=== PATIENT | female | born 1935 | race Two or more races ===

== ENCOUNTER → 2024-02-11 | Outpatient (CLI) | payer MEDICARE, MEDICAID, SELFPAY ==
[2024-02-11 08:34] LABS: Basophils % (Auto) 1 % (0-2.5); Eosinophils % (Auto) 1 % (0-10); Hematocrit 36.6 % (36.0-46.0); Hemoglobin 12.8 g/dL (12.0-16.0); Immature Granulocytes % (Auto) 0 % (0-0); Immature Granulocytes Auto 0.02 Thou/mm3 (0.00-0.00); Lymphocytes # (Auto) 1.8 Thou/mm3 (1.0-4.8); Lymphocytes % (Auto) 27 % (10-50); Mean Corpuscular Hemoglobin 40.4 pg (25.0-35.0); Mean Corpuscular Volume 116 fL (80-100); Monocytes # (Auto) 0.6 Thou/mm3 (0.0-0.8); Monocytes % (Auto) 9 % (0-12); Neutrophils # (Auto) 4.2 Thou/mm3 (1.8-7.7); Neutrophils % (Auto) 63 % (37-80); Nucleated Red Blood Cell % 0 /100 WBC (0); Platelet Count 197 Thou/mm3 (140-440); RDW Standard Deviation 56.9 fL (36.4-46.3); Red Blood Count 3.17 Miln/mm3 (4.00-5.20); White Blood Count 6.6 Thou/mm3 (3.6-11.0)
[2024-02-11 09:02] LABS: Folate 19.08 ng/mL (>5.38); Vitamin B12 750 pg/mL (211-911)
[2024-02-11 09:06] LABS: Alanine Aminotransferase 17 U/L (10-49); Albumin, Serum 4.8 gm/dL (3.4-4.8); Alkaline Phosphatase 65 U/L (46-116); Anion Gap 8 (7-16); Aspartate Amino Transferase 13 U/L (0-34); BUN/Creatinine Ratio 16 Ratio (12-20); Bilirubin,Total 0.9 mg/dL (0.3-1.2); Blood Urea Nitrogen 18 mg/dL (9-23); Carbon Dioxide 22.9 mMol/L (20.0-31.0); Chloride 107 mMol/L (98-107); Creatinine (Component) 1.1 mg/dL (0.6-1.3); Globulin 2.4 gm/dL (2.3-3.5); Glucose 121 mg/dL (74-106); Osmolality,Calculated 278 (275-295); Potassium 4.4 mMol/L (3.4-5.1); Sodium 138 mMol/L (136-145); Total Protein 7.2 gm/dL (5.7-8.2); eGFR 48 See Note
[2024-02-11 09:18] LABS: Ferritin 8 ng/mL (7.3-270.7); Iron 76 mcg/dL (50-170); Percent Iron Saturation 21 % (20-55); Total Iron Binding Capacity 360 mcg/dL (250-425); Unsaturated Iron Binding 284 (225-295)
== END | disposition home or self-care (01) ==
PROVIDERS: PCP Internal Medicine; Referring Provider Nurse Practitioner Family; Visit Provider Nurse Practitioner Family
DX: D75.839 Thrombocytosis, unspecified (principal)
CPT/HCPCS: 36415; 80053; 82607; 82728; 82746; 83540; 83550; 85025

== ENCOUNTER 2024-02-17 13:02 | Outpatient (RCR) | payer MEDICARE, MEDICAID, SELFPAY ==
--- NOTE | 2024-02-20 23:30 | CTCFLWUP_ITS ---
[address] [address] FOLLOW UP NOTE DATE OF VISIT: 10/07/2023 NAME: CHRISTIE WRIGHT MR#: [id number] : 1935 AGE: 88 DIAGNOSIS: Essential thrombocythemia, mononclonal B cell lymphocytosis JAK2 positive 02/25/23 History of iron deficiency anemia Chronic kidney disease Hypertension Taking hydroxyurea 500 mg daily and aspirin 81 mg, (03/24/2023). REASON FOR TODAY?S VISIT: I am seeing the patient for follow-up visit at [facility]. Patient is accompanied by daughter. We are seeing the patient for essential thrombocythemia , JAK2 positive. Labs drawn on 10/04/2023 show platelets 231,000, hemoglobin 13.8. Patient has been ta deirdre hydroxyurea 500 mg daily since 03/24/2023, tolerating medication well. Previously on 01/14/2023 platelets were 829,000, hemoglobin 10.3. Patient denies any concerns or complaints. Patient reports feeling well. Denies recent illness, denies chest pain, shortness of breath, cough fever weight loss abdominal pain, bleeding concerns, denies epistaxsis, blood in the stool fatou blood or black stools fatou blood from her rectum, denies swelling and/or pain to any extremity, headache dizziness vision changes. HISTORY OF PRESENT ILLNESS: PREVIOUS NOTE: Ms. Christie Wright is a 88-year-old Citizen Of [place]-speaking His panic female who is being evaluated at [facility] for thrombocytosis, patient is acco mpanied by daughter. Patient was referred to us for thrombocytosis, platelets were 829,000 on 2022, hemoglobin 10.3, MCV 77, ANC 7.8, WBC 11.1. Patient also has a history of chronic renal insuff iciency, CKD, following up with Dr. Rao, next f/u is on 06/2023, also has a history of hypertensio n, hyperlipidemia, A-fib with RVR, on Eliquis, CHF, follows up with Dr. Mckinney cardiology, who is alley bucio, last follow-up was on 01/22/2023. Patient also has a history of stroke 04/2022. Pat usha reports feeling well denies any concerns at this time. Patient ambulates with assistance of a chela gonzalez. 01/14/2023: Platelets 829,000, hemoglobin 10.3, MCV 77, ANC 7.8, WBC 11.1 01/20/2023: Transvaginal ultrasound 02/24/2023: Platelets 864,000, hemoglobin 14.4, MCV 83, ANC 10.2, WBC 14.2, CrC 40.0, vitamin B12 812 , folate 23.85 02/25/2023: Platelets 841,000, hemoglobin 14.4, MCV 83, ANC 9.8, WBC 13.9 03/24/2023: Hydroxyurea 500 mg daily and aspirin 81 mg started 05/31/2023: Platelets 419,000, hemoglobin 15.0, MCV 98, ANC 6.1 WBC 8.7, iron saturation 42%, ferriti n 101, B12 512, folate 23.95 08/02/2023: Platelets 253,000, hemoglobin 13.2, MCV 112, ANC 5.6, WBC 8.1, iron saturation 49% 10/04/2023: Platelets 231,000, hemoglobin 13.8, MCV 116, ANC 5.0, WBC 7.2 MEDICATIONS: atorvastatin Eliquis [APIXABAN] buspirone famotidine ketotifen fumarate ferrous sulfate furosemide aspirin hydrALAZINE losartan Diltiazem CD [diltiazem hcl] alendronate Calcium + Vitamin D [calcium carbonate/ergocalciferol (vitamin d2)] diclofenac sodium montelukast hydroxyurea Ventolin HFA [albuterol sulfate] nystatin-emollient combo no.88 Pataday [olopatadine hcl] Medications last reconciled by SL on 10/07/2023 ALLERGIES: ??Denies REVIEW OF SYSTEMS Neurological: No headache, seizures or blurring of vision. Gastrointestinal: No nausea, vomiting, diarrhea or constipation. Cardiovascular: No palpitations or angina pains. Respiratory: No cough, chest pain or shortness of breath. VITAL SIGNS: Date Time PHYSICAL EXAMINATION: Conjunctivae is pink. Oral cavity: No Lesions. Chest is clear to auscultation. No wheezes or rales audible. CVS: Rhythm regular, no murmurs. Abdomen is soft. No hepatosplenomegaly. Extremities: No pedal edema, no cyanosis. LABORATORY DATA: Date 02/11/2024 Time 8:05 AM CBC ? ??WHITE BLOOD COUNT (Thou/mm3) 6.6 ??RED BLOOD COUNT (Miln/mm3) 3.17 L ??HEMOGLOBIN (gm/dl) 12.8 ??HEMATOCRIT (%) 36.6 ??MCV (MEAN CORPUSCULAR VOL) (fl) 116 H ??MCH (MEAN CORPUSCULAR HGB) (pg) 40.4 H ??MCHC (MEAN CORPSCULR HGB CONC) (gm/dl) 35.0 ??RDW (RBC DISTRIBUTION WDTH) SD (fl) 56.9 H ??PLATELET COUNT (Thou/mm3) 197 ??NEUTROPHILS %, AUTO (%) 63 ??LYMPH %, AUTO (%) 27 ??MONO %, AUTO (%) 9 ??EOS %, AUTO (%) 1 ??BASO %, AUTO (%) 1 ??NUCLEATED RBC % (/100 WBC) 0 ??NEUTROPHILS, AUTO (Thou/mm3) 4.2 ??LYMPH, AUTO (Thou/mm3) 1.8 ??MONO, AUTO (Thou/mm3) 0.6 ??EOS, AUTO (Thou/mm3) 0.0 ??BASO, AUTO (Thou/mm3) 0.0 ??NUCLEATED RBC # (Thou/mm3) 0.00 ??IMMATURE GRANULOCYTES % AUTO (%) 0 ??IMMATURE GRANULOCYTES, AUTO (Thou/mm3) 0.02 H Chemistry ? ??GLUCOSE,RANDOM (mg/dL) 121 H ??BLOOD UREA NITROGEN (mg/dL) 18 ??CREATININE (mg/dL) 1.10 ??SODIUM (mmol/L) 138 ??POTASSIUM (mmol/L) 4.4 ??CHLORIDE (mmol/L) 107 ??CO2 (CARBON DIOXIDE) (mmol/L) 22.9 ??ANION GAP (mmol/L) 8 ??OSMOLALITY, CALC 278 ??BUN/CREATININE RATIO (Ratio) 16 ??CrCl (CandG) (ml/min) 35.19 ??AST/SGOT (Unit/L) 13 ??ALT/SGPT (Unit/L) 17 ??ALKALINE PHOSPHATASE (Unit/L) 65 ??BILIRUBIN, TOTAL (mg/dL) 0.9 ??PROTEIN TOTAL (gm/dl) 7.2 ??ALBUMIN, SERUM (gm/dl) 4.8 ??GLOBULIN (gm/dl) 2.4 ??ALBUMIN/GLOBULIN RATIO 2.0 ??CALCIUM, SERUM (mg/dL) 10.0 ??CALCIUM SERUM (CORRECTED) (mg/dL) 10.0 Additional Labs ? ??TOTAL IRON BINDING CAP (S*) (mcg/dL) 360 ??UNBOUND IBC (mcg/dL) 284 ? ??Initials LZO ??Approved By LZO Other Labs ? ??CrCl (J) (ml/min) 35.7 ??FERRITIN (ng/ml) 8 ??Iron (mcg/dL) 76 ??Percent Iron Saturation (%) 21 ??Vitamin B12 (pg/ml) 750 ??Folate (ng/ml) 19.08 ??eGFR (See Note) 48 L ASSESSMENT: 1. Essential thrombocythemia, mononclonal B cell lymphocytosis JAK2 positive 02/25/23. 2. BCR/ABL transcript l, MPN panel negative on 02/24/2023. 3. Platelet count 231,000 on 10/04/2023, previously platelet count 829,000 on 01/14/2023 4. History of iron deficiency anemia, [id number], iron saturation 35% on 10/04/2023. 5. Chronic kidney disease, following up with Dr. Rao, creatinine 0.9 on 10/04/2023. 6. Hypertension CAD CHF A-fib with RVR, on Eliquis, following up with Dr. Mckinney, asymptomatic. 7. Stroke April 2022. 8. Taking hydroxyurea 500 mg and aspirin 81 mg since 03/24/2023, tolerating them well. 9. Follows up with Dr Sparks, [facility], patient reports she had an endometrial biopsy done recently due to endometrial thickening per transvaginal ultrasound done on 01/20/2023, was told biopsy was negativ e for malignancy, denies any complaints or concerns. PLAN: 1. Patient asymptomatic, no concerns or complaints. 2. Continue with hydroxyurea 500 mg daily and aspirin 81 mg daily, goal is to bring platelets to 400 ,000 or below. 3. Repeat labs prior to next follow-up appointment, labs ordered include CBC CMP iron saturation alisa ritin B12 folate 4. I will see the patient for follow-up in 2 months. 5. Request pathology results from endometrial biopsy. Dictated by: SUNDAY Donovan Electronically Signed by: {Object.Sanct_ID2*PnP.NameFL}, {Object.Sanct_ID2*PnP.Suffix} on {Object.Duncan ct_Date2@d01b} at {Object.Sanct_Time2@t3b} cc: JAVI RAO, Referring: GETACHEW RAO This document was completed utilizing speech recognition software. Grammatical errors, random word in sertions, pronoun errors, and incomplete sentences are an occasional consequence of this system due t o software limitations, ambient noise, and hardware issues. Any formal questions or concerns about th e content, text or information contained within the body of this dictation should be directly address ed to the provider for clarification. Patient: CHRISTIE WRIGHT : 1935 MR#: [id number] FOLLOW UP NOTE Page 6 of 6
--- NOTE | 2024-02-20 23:35 | CTCFLWUP_ITS ---
[address] [address] FOLLOW UP NOTE DATE OF VISIT: 02/17/2024 NAME: CHRISTIE WRIGHT MR#: [id number] : 1935 AGE: 88 DIAGNOSIS: Essential thrombocythemia, mononclonal B cell lymphocytosis JAK2 positive 02/25/23 History of iron deficiency anemia Chronic kidney disease Hypertension Taking hydroxyurea 500 mg daily and aspirin 81 mg, (03/24/2023). REASON FOR TODAY?S VISIT: I am seeing the patient for follow-up visit at [facility]. Patient is accompanied by daughter. We are seeing the patient for essential thrombocythemia , JAK2 positive. Labs drawn on 10/04/2023 show platelets 231,000, hemoglobin 13.8. Patient has been ta deirdre hydroxyurea 500 mg daily since 03/24/2023, tolerating medication well. Previously on 01/14/2023 platelets were 829,000, hemoglobin 10.3. Patient denies any concerns or complaints. Patient reports feeling well. Denies recent illness, denies chest pain, shortness of breath, cough fever weight loss abdominal pain, bleeding concerns, denies epistaxsis, blood in the stool fatou blood or black stools fatou blood from her rectum, denies swelling and/or pain to any extremity, headache dizziness vision changes. HISTORY OF PRESENT ILLNESS: PREVIOUS NOTE: Ms. Christie Wright is a 88-year-old [place]-speaking His panic female who is being evaluated at [facility] for thrombocytosis, patient is acco mpanied by daughter. Patient was referred to us for thrombocytosis, platelets were 829,000 on 2022, hemoglobin 10.3, MCV 77, ANC 7.8, WBC 11.1. Patient also has a history of chronic renal insuff iciency, CKD, following up with Dr. Rao, next f/u is on 06/2023, also has a history of hypertensio n, hyperlipidemia, A-fib with RVR, on Eliquis, CHF, follows up with Dr. Mckinney cardiology, who is alley bucio, last follow-up was on 01/22/2023. Patient also has a history of stroke 04/2022. Pat usha reports feeling well denies any concerns at this time. Patient ambulates with assistance of a chela gonzalez. 01/14/2023: Platelets 829,000, hemoglobin 10.3, MCV 77, ANC 7.8, WBC 11.1 01/20/2023: Transvaginal ultrasound 02/24/2023: Platelets 864,000, hemoglobin 14.4, MCV 83, ANC 10.2, WBC 14.2, CrC 40.0, vitamin B12 812 , folate 23.85 02/25/2023: Platelets 841,000, hemoglobin 14.4, MCV 83, ANC 9.8, WBC 13.9 03/24/2023: Hydroxyurea 500 mg daily and aspirin 81 mg started 05/31/2023: Platelets 419,000, hemoglobin 15.0, MCV 98, ANC 6.1 WBC 8.7, iron saturation 42%, ferriti n 101, B12 512, folate 23.95 08/02/2023: Platelets 253,000, hemoglobin 13.2, MCV 112, ANC 5.6, WBC 8.1, iron saturation 49% 10/04/2023: Platelets 231,000, hemoglobin 13.8, MCV 116, ANC 5.0, WBC 7.2 MEDICATIONS: atorvastatin Eliquis [APIXABAN] buspirone famotidine ketotifen fumarate ferrous sulfate furosemide aspirin hydrALAZINE losartan Diltiazem CD [diltiazem hcl] alendronate Calcium + Vitamin D [calcium carbonate/ergocalciferol (vitamin d2)] diclofenac sodium montelukast hydroxyurea Ventolin HFA [albuterol sulfate] nystatin-emollient combo no.88 Pataday [olopatadine hcl] Medications last reconciled by SL on 10/07/2023 ALLERGIES: ??Denies REVIEW OF SYSTEMS Neurological: No headache, seizures or blurring of vision. Gastrointestinal: No nausea, vomiting, diarrhea or constipation. Cardiovascular: No palpitations or angina pains. Respiratory: No cough, chest pain or shortness of breath. VITAL SIGNS: Date Vitals reviewed and are stableTime PHYSICAL EXAMINATION: Alert oriented x 4 oral cavity: No Lesions. Chest is clear to auscultation. No wheezes or rales audible. CVS: Rhythm regular, no murmurs. Abdomen is soft. No hepatosplenomegaly. Extremities: No pedal edema, no cyanosis. LABORATORY DATA: Date 02/11/2024 Time 8:05 AM CBC ? ??WHITE BLOOD COUNT (Thou/mm3) 6.6 ??RED BLOOD COUNT (Miln/mm3) 3.17 L ??HEMOGLOBIN (gm/dl) 12.8 ??HEMATOCRIT (%) 36.6 ??MCV (MEAN CORPUSCULAR VOL) (fl) 116 H ??MCH (MEAN CORPUSCULAR HGB) (pg) 40.4 H ??MCHC (MEAN CORPSCULR HGB CONC) (gm/dl) 35.0 ??RDW (RBC DISTRIBUTION WDTH) SD (fl) 56.9 H ??PLATELET COUNT (Thou/mm3) 197 ??NEUTROPHILS %, AUTO (%) 63 ??LYMPH %, AUTO (%) 27 ??MONO %, AUTO (%) 9 ??EOS %, AUTO (%) 1 ??BASO %, AUTO (%) 1 ??NUCLEATED RBC % (/100 WBC) 0 ??NEUTROPHILS, AUTO (Thou/mm3) 4.2 ??LYMPH, AUTO (Thou/mm3) 1.8 ??MONO, AUTO (Thou/mm3) 0.6 ??EOS, AUTO (Thou/mm3) 0.0 ??BASO, AUTO (Thou/mm3) 0.0 ??NUCLEATED RBC # (Thou/mm3) 0.00 ??IMMATURE GRANULOCYTES % AUTO (%) 0 ??IMMATURE GRANULOCYTES, AUTO (Thou/mm3) 0.02 H Chemistry ? ??GLUCOSE,RANDOM (mg/dL) 121 H ??BLOOD UREA NITROGEN (mg/dL) 18 ??CREATININE (mg/dL) 1.10 ??SODIUM (mmol/L) 138 ??POTASSIUM (mmol/L) 4.4 ??CHLORIDE (mmol/L) 107 ??CO2 (CARBON DIOXIDE) (mmol/L) 22.9 ??ANION GAP (mmol/L) 8 ??OSMOLALITY, CALC 278 ??BUN/CREATININE RATIO (Ratio) 16 ??CrCl (CandG) (ml/min) 35.19 ??AST/SGOT (Unit/L) 13 ??ALT/SGPT (Unit/L) 17 ??ALKALINE PHOSPHATASE (Unit/L) 65 ??BILIRUBIN, TOTAL (mg/dL) 0.9 ??PROTEIN TOTAL (gm/dl) 7.2 ??ALBUMIN, SERUM (gm/dl) 4.8 ??GLOBULIN (gm/dl) 2.4 ??ALBUMIN/GLOBULIN RATIO 2.0 ??CALCIUM, SERUM (mg/dL) 10.0 ??CALCIUM SERUM (CORRECTED) (mg/dL) 10.0 Additional Labs ? ??TOTAL IRON BINDING CAP (S*) (mcg/dL) 360 ??UNBOUND IBC (mcg/dL) 284 ? ??Initials LZO ??Approved By LZO Other Labs ? ??CrCl (J) (ml/min) 35.7 ??FERRITIN (ng/ml) 8 ??Iron (mcg/dL) 76 ??Percent Iron Saturation (%) 21 ??Vitamin B12 (pg/ml) 750 ??Folate (ng/ml) 19.08 ??eGFR (See Note) 48 L ASSESSMENT and plan: 1. Essential thrombocythemia, mononclonal B cell lymphocytosis JAK2 positive 02/25/23. 2. BCR/ABL transcript l, MPN panel negative on 02/24/2023. 3. Platelet count 190 today, previously platelet count 829,000 on 01/14/2023 Patient has been on hydroxyurea 500 mg along with baby aspirin Tolerating well with no complaints Platelets at goal Will reduce hydroxyurea to Wednesday to Wednesday the skipping weekend dose RTC in 2 months with labs #2 endometrial hyperplasia Follows with a veneer taper and biopsy was negative Advised to follow-up with PCP Below chronic problems reviewed. Chronic kidney disease, following up with Dr. Rao, Hypertension CAD CHF A-fib with RVR, on , following up with Dr. Mckinney, asymptomatic. Stroke April 2022. Electronically signed by Dr. Bonilla Electronically Signed by: {Object.Sanct_ID*PnP.NameFL}, {Object.Sanct_ID*PnP.Suffix} on {Object.Sanct _Date} at {Object.Sanct_Time} Electronically Signed by: {Object.Sanct_ID2*PnP.NameFL}, {Object.Sanct_ID2*PnP.Suffix} on {Object.Duncan ct_Date2@d01b} at {Object.Sanct_Time2@t3b} cc: JAVI RAO, Referring: LALIYANETHJOCELINE MCCARTHYURI This document was completed utilizing speech recognition software. Grammatical errors, random word in sertions, pronoun errors, and incomplete sentences are an occasional consequence of this system due t o software limitations, ambient noise, and hardware issues. Any formal questions or concerns about th e content, text or information contained within the body of this dictation should be directly address ed to the provider for clarification. Patient: CHRISTIE WRIGHT : 1935 MR#: [id number] FOLLOW UP NOTE Page 6 of 6
== END 2024-02-26 23:59 | disposition home or self-care (01) ==
LOC: SCTC 13:02
PROVIDERS: PCP Internal Medicine; Referring Provider Internal Medicine; Visit Provider Internal Medicine Hematology & Oncology
DX: D47.3 Essential (hemorrhagic) thrombocythemia (principal); D72.820 Lymphocytosis (symptomatic); Z86.2 Personal history of diseases of the blood and blood-forming organs and certain disorders involving the immune mechanism; Z79.82 Long term (current) use of aspirin
CPT/HCPCS: 99213; G0463

== ENCOUNTER → 2024-05-04 | Outpatient (CLI) | payer MEDICARE, MEDICAID, SELFPAY ==
[2024-05-04 10:26] LABS: Basophils % (Auto) 0 % (0-2.5); Eosinophils % (Auto) 0 % (0-10); Hematocrit 36.7 % (36.0-46.0); Hemoglobin 12.7 g/dL (12.0-16.0); Immature Granulocytes % (Auto) 1 % (0-0); Immature Granulocytes Auto 0.04 Thou/mm3 (0.00-0.00); Lymphocytes # (Auto) 1.6 Thou/mm3 (1.0-4.8); Lymphocytes % (Auto) 23 % (10-50); Mean Corpuscular HGB Conc 34.6 g/dl (31.0-37.0); Mean Corpuscular Hemoglobin 40.6 pg (25.0-35.0); Mean Corpuscular Volume 117 fL (80-100); Monocytes # (Auto) 0.6 Thou/mm3 (0.0-0.8); Monocytes % (Auto) 8 % (0-12); Neutrophils # (Auto) 4.8 Thou/mm3 (1.8-7.7); Neutrophils % (Auto) 68 % (37-80); Nucleated Red Blood Cell % 0 /100 WBC (0); Platelet Count 300 Thou/mm3 (140-440); RDW Standard Deviation 58.5 fL (36.4-46.3); Red Blood Count 3.13 Miln/mm3 (4.00-5.20); White Blood Count 7.1 Thou/mm3 (3.6-11.0)
[2024-05-04 10:44] LABS: Alanine Aminotransferase 17 U/L (10-49); Albumin, Serum 4.5 gm/dL (3.4-4.8); Albumin/Globulin Ratio 1.9 (1.2-2.2); Alkaline Phosphatase 72 U/L (46-116); Anion Gap 9 (7-16); Aspartate Amino Transferase 18 U/L (0-34); BUN/Creatinine Ratio 20 Ratio (12-20); Bilirubin,Total 0.8 mg/dL (0.3-1.2); Blood Urea Nitrogen 18 mg/dL (9-23); Calcium 9.3 mg/dL (8.3-10.6); Calcium (Corrected) 9.3 mg/dL (8.5-10.1); Carbon Dioxide 26.7 mMol/L (20.0-31.0); Chloride 107 mMol/L (98-107); Creatinine (Component) 0.9 mg/dL (0.6-1.3); Globulin 2.4 gm/dL (2.3-3.5); Glucose 116 mg/dL (74-106); Osmolality,Calculated 287 (275-295); Potassium 4.3 mMol/L (3.4-5.1); Sodium 143 mMol/L (136-145); Total Protein 6.9 gm/dL (5.7-8.2); eGFR > 60 See Note
[2024-05-04 10:51] LABS: Vitamin B12 687 pg/mL (211-911)
[2024-05-04 10:58] LABS: Ferritin 35 ng/mL (7.3-270.7); Iron 115 mcg/dL (50-170); Percent Iron Saturation 39 % (20-55); Total Iron Binding Capacity 293 mcg/dL (250-425); Unsaturated Iron Binding 178 (225-295)
== END | disposition home or self-care (01) ==
LOC: SCTO 09:47
PROVIDERS: PCP Internal Medicine; Referring Provider Nurse Practitioner Family; Visit Provider Nurse Practitioner Family
DX: D75.839 Thrombocytosis, unspecified (principal)
CPT/HCPCS: 36415; 80053; 82607; 82728; 82746; 83540; 83550; 85025

== ENCOUNTER 2024-05-18 08:49 | Outpatient (RCR) | payer MEDICARE, MEDICAID, SELFPAY | END 2024-05-26 23:59 | disposition home or self-care (01) | LOC: SCTC 08:49 | PROVIDERS: PCP Internal Medicine; Referring Provider Internal Medicine; Visit Provider Nurse Practitioner Family | DX: D47.3 Essential (hemorrhagic) thrombocythemia (principal); D72.820 Lymphocytosis (symptomatic); Z79.82 Long term (current) use of aspirin; M81.0 Age-related osteoporosis without current pathological fracture; Z79.83 Long term (current) use of bisphosphonates | CPT/HCPCS: 99212; G0463 ==

== ENCOUNTER → 2024-07-11 | Outpatient (CLI) | payer MEDICARE, MEDICAID, SELFPAY ==
[2024-07-11 08:56] LABS: Collection Type, Urine Clean Catch
[2024-07-11 09:51] LABS: Basophils % (Auto) 0 % (0-2.5); Eosinophils % (Auto) 1 % (0-10); Hematocrit 37.4 % (36.0-46.0); Hemoglobin 12.8 g/dL (12.0-16.0); Immature Granulocytes % (Auto) 0 % (0-0); Immature Granulocytes Auto 0.02 Thou/mm3 (0.00-0.00); Lymphocytes # (Auto) 1.5 Thou/mm3 (1.0-4.8); Lymphocytes % (Auto) 21 % (10-50); Mean Corpuscular HGB Conc 34.2 g/dl (31.0-37.0); Mean Corpuscular Hemoglobin 40.4 pg (25.0-35.0); Mean Corpuscular Volume 118 fL (80-100); Monocytes # (Auto) 0.7 Thou/mm3 (0.0-0.8); Monocytes % (Auto) 9 % (0-12); Neutrophils % (Auto) 69 % (37-80); Nucleated Red Blood Cell % 0 /100 WBC (0); Platelet Count 254 Thou/mm3 (140-440); RDW Standard Deviation 53.2 fL (36.4-46.3); Red Blood Count 3.17 Miln/mm3 (4.00-5.20); White Blood Count 7.2 Thou/mm3 (3.6-11.0)
[2024-07-11 10:03] LABS: Bacteria,Urine Rare; Bilirubin,Urine Negative (Negative); Blood,Urine Negative (Negative); Clarity,Urine Clear (Clear/Hazy); Color,Urine Lt-Yellow (Lt Yel-Yel); Glucose, Urine Negative (Negative); Ketones,Urine Negative (Negative); Leukocyte Esterase,Urine Positive (Negative); Nitrite,Urine Negative (Negative); Protein,Urine Negative (Neg - Trace); RBC,Urine 2 /hpf (0-3); Specific Gravity,Urine 1.014 (1.001-1.035); Squamous Epithelial Cell,Urine 3 /hpf (0-5); Urobilinogen,Urine Negative mg/dL (0.0-1.0); WBC,Urine 7 /hpf (0-5)
[2024-07-11 10:17] LABS: Parathyroid Hormone Intact 50.6 pg/ml (18.5-88.0)
[2024-07-11 10:18] LABS: Ferritin 28 ng/mL (7.3-270.7); Iron 137 mcg/dL (50-170); Percent Iron Saturation 43 % (20-55); Total Iron Binding Capacity 316 mcg/dL (250-425); Unsaturated Iron Binding 179 (225-295)
[2024-07-11 10:19] LABS: Folate 14.88 ng/mL (>5.38); Vitamin B12 1008 pg/mL (211-911)
[2024-07-11 10:32] LABS: Alanine Aminotransferase 15 U/L (10-49); Albumin, Serum 4.5 gm/dL (3.4-4.8); Alkaline Phosphatase 60 U/L (46-116); Anion Gap 8 (7-16); Aspartate Amino Transferase 20 U/L (0-34); BUN/Creatinine Ratio 19 Ratio (12-20); Blood Urea Nitrogen 21 mg/dL (9-23); Calcium 9.5 mg/dL (8.3-10.6); Calcium (Corrected) 9.5 mg/dL (8.5-10.1); Carbon Dioxide 26.4 mMol/L (20.0-31.0); Chloride 107 mMol/L (98-107); Creatinine (Component) 1.1 mg/dL (0.6-1.3); Globulin 2.2 gm/dL (2.3-3.5); Glucose 111 mg/dL (74-106); Osmolality,Calculated 285 (275-295); Phosphorous 3.5 mg/dL (2.4-5.1); Potassium 4.3 mMol/L (3.4-5.1); Sodium 141 mMol/L (136-145); Total Protein 6.7 gm/dL (5.7-8.2); eGFR 48 See Note
== END | disposition home or self-care (01) ==
PROVIDERS: PCP Family Medicine; Referring Provider Nurse Practitioner Family; Visit Provider Internal Medicine
DX: D75.839 Thrombocytosis, unspecified (principal); I12.9 Hypertensive chronic kidney disease with stage 1 through stage 4 chronic kidney disease, or unspecified chronic kidney disease; N18.30 Chronic kidney disease, stage 3 unspecified
CPT/HCPCS: 36415; 80053; 81001; 82607; 82728; 82746; 83540; 83550; 83970; 84100; 85025

== ENCOUNTER 2024-07-17 09:03 | Outpatient (RCR) | payer MEDICARE, MEDICAID, SELFPAY | END 2024-07-26 23:59 | disposition home or self-care (01) | LOC: SCTC 09:03 | PROVIDERS: PCP Internal Medicine; Referring Provider Family Medicine; Visit Provider Nurse Practitioner Family | DX: D47.3 Essential (hemorrhagic) thrombocythemia (principal); D72.820 Lymphocytosis (symptomatic); M81.0 Age-related osteoporosis without current pathological fracture; Z79.83 Long term (current) use of bisphosphonates; Z79.82 Long term (current) use of aspirin | CPT/HCPCS: 99212; G0463 ==

== ENCOUNTER 2024-08-15 11:40 | Emergency (ER) | payer MEDICARE, MEDICAID, SELFPAY ==
[2024-08-15 11:43] VITALS: BMI 29.8
[2024-08-15 12:05] VITALS: BP 149/60; PULSE 76; RESP 18; TEMP 36.8; O2SAT 95
--- NOTE | 2024-08-15 12:13 | XR_ITS ---
Examination: Venous duplex lower extremity sonogram, bilateral. Date and time of exam: August 15, 2024 1222 hours INDICATIONS: Lower leg pain and swelling beginning one month ago with redness Technique: Multiple sonographic images of the deep venous system have been obtained. B-mode/2-D grayscale imaging of vascular structures and Doppler spectral analysis (waveforms) and color performed Both legs are examined. Findings: Deep venous systems do not demonstrate abnormal echogenicity. All visualized deep veins exhibit compressibility. All visualized deep veins exhibit augmentation. Impression: Negative for deep vein thrombosis
--- NOTE | 2024-08-15 12:13 | XR_ITS ---
Examination: PA chest single view TECHNIQUE: Upright PA chest single view Date and time: August 15, 2024 1317 hours Comparison August 28, 2020 INDICATIONS: Shortness of breath today. FINDINGS: Mild enlargement left ventricle Moderate vascular congestion. No lobar pneumonia. Prominent osteopenia IMPRESSION: Moderate vascular congestion
--- NOTE | 2024-08-15 12:13 | PD.EDRME ---
Rapid Medical Screening Exam RME Arrival date/time: 08/15/24 11:40 89-year-old female presents to the emergency department today for complaints of bilateral lower extremity swelling Chief Complaint: Extremity Problem,Nontraumatic Vital signs: Vital Signs Temperature 98.2 F 08/15/24 12:05 Pulse Rate 76 08/15/24 12:05 Respiratory Rate 18 08/15/24 12:05 Blood Pressure 149/60 H 08/15/24 12:05 Pulse Oximetry (%) 95 08/15/24 12:05 Oxygen Delivery Method Room Air 08/15/24 12:05
[2024-08-15 13:27] LABS: Basophils % (Auto) 0 % (0-2.5); Eosinophils # (Auto) 0.1 Thou/mm3 (0.0-0.5); Eosinophils % (Auto) 1 % (0-10); Hematocrit 39.4 % (36.0-46.0); Immature Granulocytes % (Auto) 0 % (0-0); Immature Granulocytes Auto 0.03 Thou/mm3 (0.00-0.00); Lymphocytes % (Auto) 22 % (10-50); Mean Corpuscular HGB Conc 35.5 g/dl (31.0-37.0); Mean Corpuscular Hemoglobin 39.4 pg (25.0-35.0); Mean Corpuscular Volume 111 fL (80-100); Monocytes # (Auto) 0.8 Thou/mm3 (0.0-0.8); Monocytes % (Auto) 9 % (0-12); Neutrophils % (Auto) 67 % (37-80); Nucleated Red Blood Cell % 0 /100 WBC (0); Platelet Count 232 Thou/mm3 (140-440); RDW Standard Deviation 50.7 fL (36.4-46.3); Red Blood Count 3.55 Miln/mm3 (4.00-5.20); White Blood Count 8.9 Thou/mm3 (3.6-11.0)
[2024-08-15 13:38] LABS: INR 1.1 (0.9-1.3); Partial Thromboplastin Time 27.1 Seconds (22.0-36.0); Prothrombin Time 11.7 Seconds (9.0-12.2)
[2024-08-15 13:39] LABS: B-Type Natriuretic Peptide 80 pg/mL (0-100)
[2024-08-15 13:41] LABS: Alanine Aminotransferase 18 U/L (10-49); Albumin, Serum 4.7 gm/dL (3.4-4.8); Albumin/Globulin Ratio 1.9 (1.2-2.2); Alkaline Phosphatase 60 U/L (46-116); Anion Gap 8 (7-16); Aspartate Amino Transferase 25 U/L (0-34); BUN/Creatinine Ratio 16 Ratio (12-20); Bilirubin,Total 0.8 mg/dL (0.3-1.2); Blood Urea Nitrogen 18 mg/dL (9-23); Calcium 9.1 mg/dL (8.3-10.6); Calcium (Corrected) 9.1 mg/dL (8.5-10.1); Carbon Dioxide 26.1 mMol/L (20.0-31.0); Chloride 107 mMol/L (98-107); Creatinine (Component) 1.1 mg/dL (0.6-1.3); Estimated Creatinine Clearance 26.4 mL/min (>60); Globulin 2.5 gm/dL (2.3-3.5); Glucose 90 mg/dL (74-106); Osmolality,Calculated 283 (275-295); Potassium 4.5 mMol/L (3.4-5.1); Sodium 141 mMol/L (136-145); Total Protein 7.2 gm/dL (5.7-8.2); eGFR 48 See Note
[2024-08-15 16:09] VITALS: BP 152/82; PULSE 89; RESP 16; TEMP 36.7; O2SAT 95
--- NOTE | 2024-08-15 16:49 | PD.EDADULT ---
ED General RME/HPI General Chief complaint: Extremity Problem,Nontraumatic Stated complaint: BLE SWELLING Time Seen by Provider: 08/15/24 16:35 Arrival date/time: 08/15/24 11:40 CC: Lower extremity edema HPI patient was seen by Dr. Hernandez and referred to the emergency room for leg swelling. Patient has a CKD and denies any chest pain shortness of breath or difficulty breathing. Currently there is no pain RME / HPI RME / HPI narrative: 08/15/24 11:40 89-year-old female presents to the emergency department today for complaints of bilateral lower extremity swelling Related Data Home Medications ?Medication ?Instructions ?Recorded ?Confirmed aspirin 81 mg tablet,delayed 1 tab PO QDAY 12/15/21 12/15/21 release buspirone 10 mg tablet 10 mg PO TID 12/15/21 12/15/21 furosemide 40 mg tablet (Lasix) 40 mg PO BID 12/15/21 12/15/21 losartan 100 mg tablet 100 mg PO QDAY 12/15/21 12/15/21 montelukast 10 mg tablet 1 tab PO QDAY 12/15/21 12/15/21 Previous Rx's ?Medication ?Instructions ?Recorded diltiazem HCl 240 mg 240 mg PO QDAY #30 caps 08/12/20 capsule,extended release 24 hr (Cardizem CD) Allergies Allergy/AdvReac Type Severity Reaction Status Date / Time cephalexin Allergy RASH Verified 08/15/24 11:43 Review of Systems Review of Systems Narrative Review of Systems: GEN: No fever, no chills, no weight loss EYES: No discharge, no visual changes, no pain HEENT: No ear pain, no congestion, no sore throat PULM: No shortness of breath, no cough, no congestion CV: No chest pain, no dyspnea on exertion, no palpitations GI: No nausea, no vomiting, no diarrhea, no pain, no constipation : No frequency, no urgency, no dysuria MUSC/SKEL: No joint pain, no back pain, + lower extremity edema SKIN: No rash PSYCH: No hallucinations, no depression HEME/LYMPH: No easy bleeding or bruising tendencies NEURO: No weakness, no headache Past Medical History Past Medical History NEUROLOGIC: Negative Seizures CARDIAC: Positive Cardiac Disorders, Atrial Fibrillation, Hypercholesterolemia and Hypertension; Negative Congestive Heart Failure RESPIRATORY: Negative Chronic Obstructive Pulmonary Disease (COPD) or Asthma GASTROINTESTINAL: Positive Gastroesophageal Reflux Disease; Negative Hepatitis GENITOURINARY: Negative Renal Disease MUSCULOSKELETAL: Positive Arthritis ENDOCRINE: Negative Diabetes Mellitus Type 1 or Diabetes Mellitus Type 2 HEMATOLOGIC: Negative Sickle Cell Disease OTHER HISTORY: Positive Blood Transfusions; Negative Blood Transfusion Reaction, Anesthesia Reactions, Human Immunodeficiency Virus (HIV), Chicken Pox, Measles, Mumps, Rubella (Lithuanian Measles), Pertussis, Clostridium Difficile or Cancer Social History SMOKING STATUS: Never smoker SUBSTANCE USE: does not use ED Exam Narrative Physical exam: [General: Not in any acute distress Head normocephalic HEENT: Within acceptable limits Neck is supple nontender Chest equal chest rise nontender to palpation Respiratory: Clear to auscultation no wheezes crackles or rubs CV: Rate rhythm is regular no murmurs rubs or clicks Abdomen is distended secondary to body habitus soft nontender no masses positive bowel sounds all 4 quadrants Back: No CVA tenderness no spinous process tenderness from cervical spine thoracic and lumbar spine Skin: Intact no petechiae rash induration ulceration or crepitus Extremities: Moving all extremity against resistance cap refill less than 2 seconds neurosensory intact. Minimal pitting edema in the anterior surface of both ankles right side mildly greater than left. No dorsal foot edema, no proximal lower extremity edema. No tenderness with palpation of the calves. Neuro: Awake alert oriented x3 Glascow coma 15 no focal deficits] Course Quality Measures none Orders Category Date Time Status US venous doppler LE BI Stat Exams 08/15/24 12:13 Completed XR chest 1V portable Stat Exams 08/15/24 12:13 Completed BNP [B-Type Natriuretic Peptide] Stat Lab 08/15/24 13:06 Completed CBC Stat Lab 08/15/24 13:06 Completed Comprehensive Metabolic Panel Stat Lab 08/15/24 13:06 Completed Partial Thromboplastin Time Stat Lab 08/15/24 13:06 Completed Prothrombin Time with INR Stat Lab 08/15/24 13:06 Completed Vital Signs Vital signs: Vital Signs Temperature 98.2 F 08/15/24 12:05 Pulse Rate 76 08/15/24 12:05 Respiratory Rate 18 08/15/24 12:05 Blood Pressure 149/60 H 08/15/24 12:05 Pulse Oximetry (%) 95 08/15/24 12:05 Oxygen Delivery Method Room Air 08/15/24 12:05 Discharge Plan Plan Patient Disposition: HOME (Self Care) Patient condition on transfer: Stable Prescriptions/Referrals Prescriptions/Med Rec: No Action diltiazem HCl [Cardizem CD] 240 mg Capsule,Extended Release 24hr 240 mg PO QDAY Qty: 30 0RF Rx Instructions: hold for sbp<100 or pulse <60 aspirin 81 mg tablet,delayed release (DR/EC) 1 tab PO QDAY Patient Comments: TAKE 1 TABLET BY MOUTH EVERY DAY. furosemide [Lasix] 40 mg tablet 40 mg PO BID Rx Instructions: take 1 tablet at 10 am and take 1 tablet at 2pm montelukast 10 mg tablet 1 tab PO QDAY Patient Comments: tablet losartan 100 mg tablet 100 mg PO QDAY Patient Comments: tablet buspirone 10 mg tablet 10 mg PO TID Referrals: Mohit March MD [Primary Care Provider] - In 1 week Problem List Clinical Impression: Edema of both lower legs Patient/Caregiver Discharge Instructions Education Materials: ED Leg Swelling in Both Legs Additional Instructions: When sleeping on your back at nighttime put your legs up on pillows above the level of your heart. Take all your medications as prescribed follow-up with Dr. Rao in 6 months if there is worsening of symptoms such as abrupt onset of shortness of breath difficulty breathing or chest pain return immediately to the emergency room. Print Language: Telugu Stand Alone Forms: Betty Award Info., Work/School Release, Patient Portal Info Letter PA/CANDI Supervising Physician PA/CANDI Supervising Physician: Jason Jaramillo ENP [facility] Clinical Information Provided by patient and family Medical Records Reviewed [facility] Meds/Rx Considered, not Ordered None Labs/Rad/Tests considered, not Ordered None Chronic Illness/Social Conditions Add or document further as needed: CKD EKG EKG not done Lab Interpretation Labs: interpreted by ma Lab(s) interpretation(s): CBC shows no acute leukocytosis anemia thrombocytopenia Coags within acceptable limits CMP shows no significant electrolyte imbalances BUN of 18 creatinine 1.1. No transaminitis or T. bili elevation BNP is at 80. Imaging Imaging interpretation: interpreted by ma Provider imaging interpretation(s): Chest x-ray showed mild vascular congestion Ultrasound of the lower extremities are negative for DVT. Medication Administration(s) none Diagnosis Differential diagnosis: DVT CHF dependent lower edema Dispositon Disposition: Discharge Home Disposition comments: Patient to follow-up with Dr. Pace in 6 months if there is worsening pitting edema in the lower extremities follow-up sooner with Dr. Lawrence if there is an abrupt onset with shortness of breath difficulty breathing or chest pain return the emergency room.
== END 2024-08-15 17:05 | disposition home or self-care (01) ==
PROVIDERS: Nurse Practitioner Primary Care; Emergency Provider Emergency Medicine; PCP Internal Medicine
DX: R60.0 Localized edema (principal); N18.9 Chronic kidney disease, unspecified; R06.02 Shortness of breath
CPT/HCPCS: 36415; 71045; 80053; 83880; 85025; 85610; 85730; 93970; 99284

== ENCOUNTER → 2024-08-24 | Outpatient (CLI) | payer MEDICARE, MEDICAID, SELFPAY ==
[2024-08-24 08:33] LABS: Basophils # (Auto) 0.1 Thou/mm3 (0.0-0.2); Basophils % (Auto) 1 % (0-2.5); Eosinophils # (Auto) 0.1 Thou/mm3 (0.0-0.5); Eosinophils % (Auto) 1 % (0-10); Hemoglobin 13.6 g/dL (12.0-16.0); Immature Granulocytes % (Auto) 0 % (0-0); Immature Granulocytes Auto 0.02 Thou/mm3 (0.00-0.00); Lymphocytes # (Auto) 1.9 Thou/mm3 (1.0-4.8); Lymphocytes % (Auto) 27 % (10-50); Mean Corpuscular HGB Conc 35.8 g/dl (31.0-37.0); Mean Corpuscular Hemoglobin 39.8 pg (25.0-35.0); Mean Corpuscular Volume 111 fL (80-100); Monocytes # (Auto) 0.7 Thou/mm3 (0.0-0.8); Monocytes % (Auto) 10 % (0-12); Neutrophils # (Auto) 4.4 Thou/mm3 (1.8-7.7); Neutrophils % (Auto) 62 % (37-80); Nucleated Red Blood Cell % 0 /100 WBC (0); Platelet Count 242 Thou/mm3 (140-440); RDW Standard Deviation 50.6 fL (36.4-46.3); Red Blood Count 3.42 Miln/mm3 (4.00-5.20)
[2024-08-24 08:59] LABS: Alanine Aminotransferase 18 U/L (10-49); Albumin, Serum 4.3 gm/dL (3.4-4.8); Albumin/Globulin Ratio 1.9 (1.2-2.2); Alkaline Phosphatase 55 U/L (46-116); Anion Gap 11 (7-16); Aspartate Amino Transferase 23 U/L (0-34); BUN/Creatinine Ratio 17 Ratio (12-20); Bilirubin,Total 0.8 mg/dL (0.3-1.2); Blood Urea Nitrogen 19 mg/dL (9-23); Calcium 8.9 mg/dL (8.3-10.6); Calcium (Corrected) 8.9 mg/dL (8.5-10.1); Carbon Dioxide 25.5 mMol/L (20.0-31.0); Chloride 108 mMol/L (98-107); Creatinine (Component) 1.1 mg/dL (0.6-1.3); Globulin 2.3 gm/dL (2.3-3.5); Glucose 124 mg/dL (74-106); Osmolality,Calculated 290 (275-295); Potassium 4.3 mMol/L (3.4-5.1); Sodium 144 mMol/L (136-145); Total Protein 6.6 gm/dL (5.7-8.2); eGFR 48 See Note
== END | disposition home or self-care (01) ==
LOC: SCTO 07:41
PROVIDERS: PCP Family Medicine; Referring Provider Nurse Practitioner Family; Visit Provider Nurse Practitioner Family
DX: D75.839 Thrombocytosis, unspecified (principal)
CPT/HCPCS: 36415; 80053; 85025

== ENCOUNTER → 2024-09-01 | Outpatient (CLI) | payer MEDICARE, MEDICAID, SELFPAY ==
[2024-09-01 10:02] LABS: Collection Type, Urine Clean Catch
[2024-09-01 10:18] LABS: Basophils % (Auto) 1 % (0-2.5); Eosinophils # (Auto) 0.1 Thou/mm3 (0.0-0.5); Eosinophils % (Auto) 1 % (0-10); Hematocrit 39.2 % (36.0-46.0); Hemoglobin 13.5 g/dL (12.0-16.0); Immature Granulocytes % (Auto) 0 % (0-0); Immature Granulocytes Auto 0.02 Thou/mm3 (0.00-0.00); Lymphocytes # (Auto) 1.8 Thou/mm3 (1.0-4.8); Lymphocytes % (Auto) 25 % (10-50); Mean Corpuscular HGB Conc 34.4 g/dl (31.0-37.0); Mean Corpuscular Volume 113 fL (80-100); Monocytes # (Auto) 0.6 Thou/mm3 (0.0-0.8); Monocytes % (Auto) 9 % (0-12); Neutrophils # (Auto) 4.6 Thou/mm3 (1.8-7.7); Neutrophils % (Auto) 65 % (37-80); Nucleated Red Blood Cell % 0 /100 WBC (0); Platelet Count 294 Thou/mm3 (140-440); RDW Standard Deviation 51.8 fL (36.4-46.3); Red Blood Count 3.46 Miln/mm3 (4.00-5.20); White Blood Count 7.1 Thou/mm3 (3.6-11.0)
[2024-09-01 10:32] LABS: Alanine Aminotransferase 17 U/L (10-49); Albumin, Serum 4.4 gm/dL (3.4-4.8); Alkaline Phosphatase 59 U/L (46-116); Anion Gap 11 (7-16); Aspartate Amino Transferase 22 U/L (0-34); BUN/Creatinine Ratio 22 Ratio (12-20); Blood Urea Nitrogen 22 mg/dL (9-23); Calcium 9.4 mg/dL (8.3-10.6); Calcium (Corrected) 9.4 mg/dL (8.5-10.1); Carbon Dioxide 28.3 mMol/L (20.0-31.0); Cardiac Risk Estimate 2.3 RATIO (3.7-5.6); Chloride 105 mMol/L (98-107); Cholesterol 121 mg/dL (132-200); Globulin 2.2 gm/dL (2.3-3.5); Glucose 104 mg/dL (74-106); HDL Cholesterol 53 mg/dL (40-60); LDL Cholesterol,Calculated 41 mg/dL (0-130); Osmolality,Calculated 290 (275-295); Potassium 4.3 mMol/L (3.4-5.1); Sodium 144 mMol/L (136-145); Total Protein 6.6 gm/dL (5.7-8.2); Triglycerides 133 mg/dL (30-150); eGFR 54 See Note
[2024-09-01 10:38] LABS: Glucose Estimated Average 111 mg/dL (80-131); Hemoglobin A1C 5.5 % Hgb (4.8-6.0)
[2024-09-01 10:45] LABS: Iron 123 mcg/dL (50-170); Percent Iron Saturation 41 % (20-55); Total Iron Binding Capacity 300 mcg/dL (250-425); Unsaturated Iron Binding 177 (225-295)
[2024-09-01 10:47] LABS: Vitamin B12 680 pg/mL (211-911); Vitamin D 25 Hydroxy Total 29.7 ng/mL (7.3-40.2)
[2024-09-01 10:47] LABS: Bilirubin,Urine Negative (Negative); Blood,Urine Negative (Negative); Clarity,Urine Clear (Clear/Hazy); Color,Urine Colorless (Lt Yel-Yel); Glucose, Urine Negative (Negative); Hyaline Casts,Urine < 1 /hpf (0-1); Ketones,Urine Negative (Negative); Leukocyte Esterase,Urine Negative (Negative); Nitrite,Urine Negative (Negative); PH,Urine 6.5 (5.0-7.0); Protein,Urine Negative (Neg - Trace); RBC,Urine 1 /hpf (0-3); Specific Gravity,Urine 1.007 (1.001-1.035); Squamous Epithelial Cell,Urine < 1 /hpf (0-5); Urobilinogen,Urine Negative mg/dL (0.0-1.0); WBC,Urine < 1 /hpf (0-5)
[2024-09-06 07:19] LABS: Direct LDL* 54 mg/dL (<100)
== END | disposition home or self-care (01) ==
LOC: COPL 09:18
PROVIDERS: PCP Family Medicine; Referring Provider Nurse Practitioner; Visit Provider Nurse Practitioner
DX: D50.9 Iron deficiency anemia, unspecified (principal); N18.30 Chronic kidney disease, stage 3 unspecified; R53.83 Other fatigue; Z13.1 Encounter for screening for diabetes mellitus; I12.9 Hypertensive chronic kidney disease with stage 1 through stage 4 chronic kidney disease, or unspecified chronic kidney disease
CPT/HCPCS: 36415; 80053; 80061; 81001; 82306; 82607; 82746; 83036; 83540; 83550; 83721; 83735; 85025

== ENCOUNTER 2024-09-20 12:59 | Outpatient (RCR) | payer MEDICARE, MEDICAID, SELFPAY | END 2024-09-25 23:59 | disposition home or self-care (01) | LOC: SCTC 12:59 | PROVIDERS: PCP Internal Medicine; Referring Provider Family Medicine; Visit Provider Nurse Practitioner Family | DX: D47.3 Essential (hemorrhagic) thrombocythemia (principal); D72.820 Lymphocytosis (symptomatic); M81.0 Age-related osteoporosis without current pathological fracture; Z79.83 Long term (current) use of bisphosphonates | CPT/HCPCS: 99212; G0463 ==

== ENCOUNTER → 2024-10-23 | Outpatient (CLI) | payer MEDICARE, MEDICAID, SELFPAY ==
[2024-10-23 10:39] LABS: Basophils # (Auto) 0.0 Thou/mm3 (0.0-0.2); Basophils % (Auto) 1 % (0-2.5); Eosinophils # (Auto) 0.0 Thou/mm3 (0.0-0.5); Eosinophils % (Auto) 1 % (0-10); Hematocrit 40.0 % (36.0-46.0); Hemoglobin 13.6 g/dL (12.0-16.0); Immature Granulocytes Auto 0.01 Thou/mm3 (0.00-0.00); Immature Reticulocyte Fraction 18.1 % (3.0-15.9); Lymphocytes # (Auto) 1.6 Thou/mm3 (1.0-4.8); Lymphocytes % (Auto) 20 % (10-50); Mean Corpuscular HGB Conc 34.0 g/dl (31.0-37.0); Mean Corpuscular Hemoglobin 38.7 pg (25.0-35.0); Mean Corpuscular Volume 114 fL (80-100); Monocytes # (Auto) 0.7 Thou/mm3 (0.0-0.8); Monocytes % (Auto) 9 % (0-12); Neutrophils # (Auto) 5.6 Thou/mm3 (1.8-7.7); Neutrophils % (Auto) 70 % (37-80); Nucleated Red Blood Cell # 0.00 Thou/mm3 (0.00-0.00); Nucleated Red Blood Cell % 0 /100 WBC (0); Platelet Count 265 Thou/mm3 (140-440); RDW Standard Deviation 55.5 fL (36.4-46.3); Red Blood Count 3.51 Miln/mm3 (4.00-5.20); Reticulocyte % (Auto) 2.0 % (0.5-1.5); Reticulocyte Absolute Auto 70.9 Biln/L (25.0-75.0); Reticulocyte Hgb Content 44.0 pg (28.0-35.0); White Blood Count 8.1 Thou/mm3 (3.6-11.0)
[2024-10-23 10:58] LABS: Alanine Aminotransferase 20 U/L (10-49); Albumin, Serum 4.7 gm/dL (3.4-4.8); Albumin/Globulin Ratio 2.0 (1.2-2.2); Alkaline Phosphatase 59 U/L (46-116); Anion Gap 11 (7-16); Aspartate Amino Transferase 24 U/L (0-34); BUN/Creatinine Ratio 18 Ratio (12-20); Bilirubin,Total 0.7 mg/dL (0.3-1.2); Blood Urea Nitrogen 18 mg/dL (9-23); Calcium 10.2 mg/dL (8.3-10.6); Calcium (Corrected) 10.2 mg/dL (8.5-10.1); Carbon Dioxide 25.5 mMol/L (20.0-31.0); Chloride 107 mMol/L (98-107); Creatinine (Component) 1.0 mg/dL (0.6-1.3); Globulin 2.3 gm/dL (2.3-3.5); Glucose 112 mg/dL (74-106); Osmolality,Calculated 287 (275-295); Potassium 5.2 mMol/L (3.4-5.1); Sodium 143 mMol/L (136-145); Total Protein 7.0 gm/dL (5.7-8.2); eGFR 54 See Note
[2024-10-23 11:06] LABS: Folate 16.01 ng/mL (>5.38); Vitamin B12 532 pg/mL (211-911)
[2024-10-23 11:21] LABS: Ferritin 43 ng/mL (7.3-270.7); Iron 79 mcg/dL (50-170); Percent Iron Saturation 25 % (20-55); Total Iron Binding Capacity 313 mcg/dL (250-425); Unsaturated Iron Binding 234 (225-295)
[2024-10-23 15:13] LABS: Path Review Blood Smear Sent to Pathologist
== END | disposition home or self-care (01) ==
LOC: SCTO 09:10
PROVIDERS: PCP Internal Medicine; Referring Provider Nurse Practitioner Family; Visit Provider Nurse Practitioner Family
DX: D75.839 Thrombocytosis, unspecified (principal)
CPT/HCPCS: 36415; 80053; 82607; 82728; 82746; 83540; 83550; 85025; 85046

== ENCOUNTER → 2024-10-25 | Outpatient (CLI) | payer MEDICARE, MEDICAID, SELFPAY ==
[2024-10-25 10:08] LABS: Albumin, Serum 4.4 gm/dL (3.4-4.8); Anion Gap 11 (7-16); BUN/Creatinine Ratio 15 Ratio (12-20); Blood Urea Nitrogen 17 mg/dL (9-23); Calcium 9.3 mg/dL (8.3-10.6); Calcium (Corrected) 9.3 mg/dL (8.5-10.1); Carbon Dioxide 23.1 mMol/L (20.0-31.0); Chloride 108 mMol/L (98-107); Creatinine (Component) 1.1 mg/dL (0.6-1.3); Glucose 131 mg/dL (74-106); Osmolality,Calculated 286 (275-295); Phosphorous 3.5 mg/dL (2.4-5.1); Potassium 5.0 mMol/L (3.4-5.1); Sodium 142 mMol/L (136-145); eGFR 48 See Note
== END | disposition home or self-care (01) ==
LOC: COPL 08:01
PROVIDERS: PCP Internal Medicine; Referring Provider Internal Medicine; Visit Provider Internal Medicine
DX: N18.30 Chronic kidney disease, stage 3 unspecified (principal)
CPT/HCPCS: 36415; 80069

== ENCOUNTER 2024-11-20 08:49 | Outpatient (RCR) | payer MEDICARE, MEDICAID, SELFPAY | END 2024-11-26 23:59 | disposition home or self-care (01) | LOC: SCTC 08:49 | PROVIDERS: PCP Internal Medicine; Referring Provider Internal Medicine; Visit Provider Nurse Practitioner Family | DX: D47.3 Essential (hemorrhagic) thrombocythemia (principal); M81.0 Age-related osteoporosis without current pathological fracture | CPT/HCPCS: 99212; G0463 ==

== ENCOUNTER → 2025-01-10 | Outpatient (CLI) | payer MEDICARE, MEDICAID, SELFPAY ==
[2025-01-10 09:26] LABS: Basophils # (Auto) 0.1 Thou/mm3 (0.0-0.2); Basophils % (Auto) 1 % (0-2.5); Eosinophils # (Auto) 0.1 Thou/mm3 (0.0-0.5); Eosinophils % (Auto) 1 % (0-10); Hematocrit 39.5 % (36.0-46.0); Hemoglobin 13.7 g/dL (12.0-16.0); Immature Granulocytes Auto 0.03 Thou/mm3 (0.00-0.00); Lymphocytes # (Auto) 1.3 Thou/mm3 (1.0-4.8); Lymphocytes % (Auto) 13 % (10-50); Mean Corpuscular HGB Conc 34.7 g/dl (31.0-37.0); Mean Corpuscular Hemoglobin 38.9 pg (25.0-35.0); Mean Corpuscular Volume 112 fL (80-100); Monocytes # (Auto) 1.0 Thou/mm3 (0.0-0.8); Monocytes % (Auto) 10 % (0-12); Neutrophils # (Auto) 7.5 Thou/mm3 (1.8-7.7); Neutrophils % (Auto) 75 % (37-80); Nucleated Red Blood Cell # 0.00 Thou/mm3 (0.00-0.00); Nucleated Red Blood Cell % 0 /100 WBC (0); Platelet Count 278 Thou/mm3 (140-440); RDW Standard Deviation 52.9 fL (36.4-46.3); Red Blood Count 3.52 Miln/mm3 (4.00-5.20); White Blood Count 10.0 Thou/mm3 (3.6-11.0)
[2025-01-10 09:35] LABS: Parathyroid Hormone Intact 86.8 pg/ml (18.5-88.0)
[2025-01-10 09:37] LABS: Alanine Aminotransferase 13 U/L (10-49); Albumin, Serum 4.6 gm/dL (3.4-4.8); Albumin/Globulin Ratio 1.8 (1.2-2.2); Alkaline Phosphatase 64 U/L (46-116); Anion Gap 10 (7-16); Aspartate Amino Transferase 22 U/L (0-34); BUN/Creatinine Ratio 15 Ratio (12-20); Bilirubin,Total 0.5 mg/dL (0.3-1.2); Blood Urea Nitrogen 18 mg/dL (9-23); Calcium 9.6 mg/dL (8.3-10.6); Calcium (Corrected) 9.6 mg/dL (8.5-10.1); Carbon Dioxide 29.8 mMol/L (20.0-31.0); Chloride 106 mMol/L (98-107); Creatinine (Component) 1.2 mg/dL (0.6-1.3); Globulin 2.5 gm/dL (2.3-3.5); Glucose 141 mg/dL (74-106); Osmolality,Calculated 294 (275-295); Phosphorous 3.7 mg/dL (2.4-5.1); Potassium 4.2 mMol/L (3.4-5.1); Sodium 146 mMol/L (136-145); Total Protein 7.1 gm/dL (5.7-8.2); eGFR 43 See Note
[2025-01-10 12:50] LABS: Collection Type, Urine Clean Catch
[2025-01-10 14:00] LABS: Bacteria,Urine Rare; Bilirubin,Urine Negative (Negative); Blood,Urine Negative (Negative); Clarity,Urine Clear (Clear/Hazy); Color,Urine Lt-Yellow (Lt Yel-Yel); Creatinine MALB Rnd Ur 108 mg/dL (30-125); Glucose, Urine Negative (Negative); Hyaline Casts,Urine < 1 /hpf (0-1); Ketones,Urine Negative (Negative); Leukocyte Esterase,Urine Positive (Negative); Microalbumin Creat Ratio 5 mg/gCrea (<30); Microalbumin, Random Urine 5 mg/L (0-300); Nitrite,Urine Negative (Negative); PH,Urine 5.5 (5.0-7.0); Protein,Urine Negative (Neg - Trace); RBC,Urine 2 /hpf (0-3); Specific Gravity,Urine 1.016 (1.001-1.035); Squamous Epithelial Cell,Urine 2 /hpf (0-5); Urobilinogen,Urine Negative mg/dL (0.0-1.0); WBC,Urine 2 /hpf (0-5)
== END | disposition home or self-care (01) ==
LOC: SCTO 08:20
PROVIDERS: PCP Internal Medicine; Referring Provider Nurse Practitioner Family; Visit Provider Internal Medicine
DX: D75.839 Thrombocytosis, unspecified (principal); I12.9 Hypertensive chronic kidney disease with stage 1 through stage 4 chronic kidney disease, or unspecified chronic kidney disease; N18.30 Chronic kidney disease, stage 3 unspecified
CPT/HCPCS: 36415; 80053; 81001; 82043; 82570; 83970; 84100; 85025

== ENCOUNTER 2025-01-18 09:10 | Outpatient (RCR) | payer MEDICARE, MEDICAID, SELFPAY | END 2025-01-26 23:59 | disposition home or self-care (01) | LOC: SCTC 09:10 | PROVIDERS: PCP Internal Medicine; Referring Provider Internal Medicine; Visit Provider Nurse Practitioner Family | DX: D47.3 Essential (hemorrhagic) thrombocythemia (principal); M81.0 Age-related osteoporosis without current pathological fracture; Z79.82 Long term (current) use of aspirin; D72.820 Lymphocytosis (symptomatic) | CPT/HCPCS: 99212; G0463 ==